=== PATIENT | male | born 1985 | race Caucasian/White ===

== ENCOUNTER 2018-06-06 13:34 | Emergency (ER) | payer SELFPAY ==
[2018-06-06] MEDS ORDERED: ONDANSETRON HCL IV 4 MG/2 ML VIAL IVP ONE (13:56)
[2018-06-06] MEDS ORDERED: MVI, ADULT NO.4 WITH VIT K 10 ML, THIAMINE HCL IV 100 MG in SOD CHLOR 0.9% WITH KCL 40M... IV ONE ×3 (13:56)
[2018-06-06] MEDS ORDERED: LORAZEPAM 2 MG/ML VIAL IV ONE ×6 (13:56→17:51)
--- NOTE | 2018-06-06 14:03 | Emergency Department Record ---
History of Present Illness - General Chief Complaint: Detox Evaluation Stated Complaint: ALCOHOL WITHDRAWLS Time Seen by Provider: 06/06/18 13:46 Source: Patient Mode of Arrival: Ambulatory Limitations: No limitations - History of Present Illness Initial Comments: 33 yo male presents with tremors, nausea, vomiting. He reports he has a 4-5 year history of consistent alcohol use of a 5th a day. He states he has been trying to wean the last 2-3 days. No seizures or seizure history. He denies other drugs. He did call an AA group in [place] with plans to follow there in the future as well. He does not have a PCP. He is not on any medications and denies any street drug use. He does work in the [employer] industry. Complaint: Alcohol dependence, Alcohol withdrawal, Desires rehab -: Hour(s) Chronic Alcohol Use: Yes Previous Visits for Alcohol Intoxication?: Yes Recent Trauma: No Associated Symptoms: Nausea, Tremors, Vomiting Treatments Prior to Arrival: None - Rodney Coma Scale Eye Response: (4) Open spontaneously Motor Response: (6) Obeys commands Verbal Response: (5) Oriented Elton Total: 15 - Related Data Allergies Allergy/AdvReac Type Severity Reaction Status Date / Time No Known Drug Allergies Allergy Verified 06/06/18 13:53 Review of Systems Constitutional: Reports: Malaise, Weakness. Denies: Chills, Fever Eyes: Denies: Eye discharge, Eye pain, Photophobia, Vision change ENT: Denies: Congestion, Throat pain Respiratory: Denies: Cough, Dyspnea, Hemoptysis, Stridor, Wheezes Cardiovascular: Denies: Chest pain, Palpitations, Syncope Endocrine: Reports: Fatigue Gastrointestinal: Denies: Abdominal pain, Diarrhea, Nausea, Vomiting Genitourinary: Denies: Dysuria, Frequency, Hematuria Musculoskeletal: Denies: Arthralgia, Back pain, Myalgia Skin: Denies: Bruising, Change in color, Rash Neurological: Reports: Confusion (trouble concentrating), Tremors, Weakness. Denies: Abnormal gait, Headache, Numbness, Seizure, Tingling, Vertigo Psychiatric: Denies: Anxiety Hematological/Lymphatic: Denies: Blood Clots, Easy bleeding, Easy bruising, Swollen glands Past Medical History - SOCIAL HISTORY Smoking Status: Current every day smoker - RESPIRATORY Hx Respiratory Disorders: No - CARDIOVASCULAR Hx Cardio Disorders: No - NEURO Hx Neuro Disorders: No - GI Hx GI Disorders: No - Hx Genitourinary Disorders: No - ENDOCRINE Hx Endocrine Disorders: No - MUSCULOSKELETAL Hx Musculoskeletal Disorders: No - PSYCH Hx Psych Problems: No - HEMATOLOGY/ONCOLOGY Hx Hematology/Oncology Disorders: No Family Medical History Family Hx Comment (NOT TO BE USED IN PLACE OF ITEMS BELOW): unknown Physical Exam - General General Appearance: Alert, Oriented x3, Cooperative, No acute distress Limitations: No limitations - Head Head exam: Atraumatic, Normocephalic, Normal inspection - Eye Eye exam: Normal appearance, PERRL. negative: Conjunctival injection, Scleral icterus - ENT ENT exam: Normal exam, Mucous membranes moist, Normal orophraynx Ear exam: Normal external inspection Nasal Exam: Normal inspection Mouth exam: Normal external inspection Teeth exam: Normal inspection Throat exam: Normal inspection - Neck Neck exam: Normal inspection, Full ROM - Respiratory Respiratory exam: Normal lung sounds bilaterally. negative: Respiratory distress - Cardiovascular Cardiovascular Exam: Regular rate, Normal rhythm, Normal heart sounds. negative : Diastolic murmur, Systolic murmur Peripheral Pulses: 2+: Radial (R), Radial (L) - GI/Abdominal GI/Abdominal exam: Soft - Rectal Rectal exam: Deferred - exam: Deferred - Extremities Extremities exam: Normal inspection. negative: Full ROM, Pedal edema, Tenderness - Back Back exam: Denies: CVA tenderness (R), CVA tenderness (L), Rash noted - Neurological Neurological exam: Alert, Normal gait, Oriented X3. negative: Abnormal gait, Altered - Psychiatric Psychiatric exam: Normal affect, Normal mood - Skin Skin exam: Dry, Intact, Normal color, Warm Course - Reevaluation(s) Reevaluation #1: The CBC was reviewed No acute changes The CMP was reviewed. HCO3 20 AG 22 Normal renal function AST 390 ALT 299 Magnesium 2.3 06/06/18 15:26 Alcohol was 0.284 06/06/18 15:27 AFter 2mg Ativan HR 126. Subjectively some improvement 06/06/18 15:28 06/06/18 15:58 HR is still 120-130 with improved tremor I explained that his chance of significant withdraw is elevated and I recommend transfer to a center with step down or potentially ICU He agrees with transfer at this time. 06/06/18 16:14 Dr Tuttle accepts the patient for transfer to [facility] for ongoing care of the withdrawal. Medical Decision Making - Lab Data Result diagrams: 06/06/18 14:03 06/06/18 14:03 Disposition Disposition: Transfer Clinical Impression: Alcohol withdrawal Disposition: Acute Care Hospital Transfer Transfer To: [facility] Reason For Transfer: Alcohol Withdrawal Accepting Physician: Marry Time Discussed w/Accepting Physician: 16:14 Condition: (3) Guarded Forms: Patient Portal Access Time of Disposition: 16:04 Quality - Quality Measures Quality Measures: N/A - Blood Pressure Screening Does Patient Have Any of the Following: No Blood Pressure Classification: Pre-Hypertensive BP Reading Systolic Measurement: 125 Diastolic Measurement: 76 Screening for High Blood Pressure: < Pre-Hypertensive BP, F/U Documented > [ [id number]] Pre-Hypertensive Follow-up Interventions: Referral to alternative/primary care provider.
[2018-06-06 14:12] LABS: HEMATOCRIT 51.6 % (42.0-52.0); MEAN CELL VOLUME 98.1 fl (81-97); MEAN CORPUSCULAR HEMOGLOBIN 32.3 pg (27-33); MEAN CORPUSCULAR HGB CONC 32.9 g/dl (32-36); MEAN PLATELET VOLUME 10.2 fl (7.4-10.4); PLATELET COUNT 285 K/uL (130-400); RED BLOOD COUNT 5.26 M/uL (4.40-5.70); RED CELL DISTRIBUTION WIDTH 12.8 % (11.5-14.5); WHITE BLOOD COUNT W/O DIFF 8.8 K/uL (4.2-12.2)
[2018-06-06 14:22] LABS: BLOOD UREA NITROGEN 7 mg/dL (6-20); CREATININE 0.8 mg/dL (0.7-1.2); EST GLOMERULAR FILTRATION RATE > 60 mL/min
[2018-06-06 14:23] LABS: ALCOHOL 0.284 g/dL (0-0.010)
[2018-06-06 14:24] LABS: GLUCOSE,RANDOM 122 mg/dL (74-109)
[2018-06-06 14:27] LABS: ALB/GLOB RATIO 1.5 (1.1-1.8); ALBUMIN 5.4 g/dL (4.0-5.0); ALKALINE PHOSPHATASE 146 U/L (40-129); ALT/SGPT 299 U/L (<41); AST/SGOT 393 U/L (10.0-50.0)
[2018-06-06] MEDS ORDERED: 0.9 % SODIUM CHLORIDE 1,000 ML BAG IV ONE ×2 (15:13→17:53)
[2018-06-06] MEDS ORDERED: DIAZEPAM 5 MG TABLET PO ONE (16:12)
== END 2018-06-06 18:25 | disposition short-term general hospital (02) ==
LOC: ER 13:34
DX: F10.239 Alcohol dependence with withdrawal, unspecified (principal); F10.229 Alcohol dependence with intoxication, unspecified; R11.2 Nausea with vomiting, unspecified; Y90.8 Blood alcohol level of 240 mg/100 ml or more; F17.210 Nicotine dependence, cigarettes, uncomplicated
CPT/HCPCS: 99285 ×2; 96376; 96365; 96366; 96375; 96361; 83735; 80053; 85027; G0480; J3490; J2405; J2060; 80320; J3411; J7030